=== PATIENT | male | born 1945 | race Caucasian/White ===

== ENCOUNTER 2017-12-14 11:26 | Emergency (ER) | payer OTHER ==
[~2017-12-14] VITALS: Ht 167.6 cm; Wt 100.0 kg
[2017-12-14 11:28] VITALS: BP 170/87; PULSE 91; RESP 16; TEMP 97.8; O2SAT 98
--- NOTE | 2017-12-14 12:29 | PD ---
HPI Chief Complaint: Dizziness Time Seen by Provider: 12:23 Travel History International Travel<30 days: No Contact w/Intl Traveler<30days: No Traveled to known affect area: No History of Present Illness HPI 72-year-old male patient with history of prostate cancer status post resection, metastases to the bone which is being followed currently with Dr. Joy, presents to the ER today for several weeks history of dizziness that is occurring intermittently. He does not know of any exacerbating or relieving factors. He denies any numbness, weakness, fevers, vomiting, chest pains, shortness of breath, or other symptoms. He says that he was sent in by his primary care physician to be evaluated with a CAT scan. Modifying Factors: None Associated Signs & Symptoms: Intermittent dizziness Risk Factors: History of prostate cancer with metastases to the bone [facility] Social History Tobacco Use: No Allergies-Medications (Allergen,Severity, Reaction): Coded Allergies: metformin (Verified Adverse Reaction, Intermediate, DIARRHEA, 12/14/17) Review of Systems Except as stated in HPI: all other systems reviewed are Neg Physical Exam Narrative GENERAL: Well-developed elderly white male patient currently not in acute distress. Awake and oriented 3. SKIN: Focused skin assessment warm/dry. HEAD: Atraumatic. Normocephalic. EYES: Pupils equal and round. No scleral icterus. No injection or drainage. ENT: No nasal bleeding or discharge. Mucous membranes pink and moist. NECK: Trachea midline. No JVD. CARDIOVASCULAR: Regular rate and rhythm. No murmur appreciated. RESPIRATORY: No accessory muscle use. Clear to auscultation. Breath sounds equal bilaterally. GASTROINTESTINAL: Abdomen soft, non-tender, nondistended. Hepatic and splenic margins not palpable. MUSCULOSKELETAL: No obvious deformities. No clubbing. No cyanosis. No edema. NEUROLOGICAL: Awake and alert. No obvious cranial nerve deficits. Motor grossly within normal limits. Normal speech. PSYCHIATRIC: Appropriate mood and affect; insight and judgment normal. Data Data Last Documented VS Vital Signs Date Time Temp Pulse Resp B/P (MAP) Pulse Ox O2 Delivery O2 Flow Rate FiO2 12/14/17 12:40 18 99 Room Air 12/14/17 12:39 12/14/17 11:28 97.8 91 Orders Orders Electrocardiogram (12/14/17 12:23) Complete Blood Count With Diff (12/14/17 12:23) Comprehensive Metabolic Panel (12/14/17 12:23) Magnesium (Mg) (12/14/17 12:23) Ckmb (Isoenzyme) Profile (12/14/17 12:23) Troponin I (12/14/17 12:23) Act Partial Throm Time (Ptt) (12/14/17 12:23) Prothrombin Time / Inr (Pt) (12/14/17 12:23) Urinalysis - C+S If Indicated (12/14/17 12:23) Ct Brain W/O Iv Contrast(Rout) (12/14/17 12:23) Ecg Monitoring (12/14/17 12:23) Iv Access Insert/Monitor (12/14/17 12:) Oximetry (12/14/17 12:) Sodium Chloride 0.9% Flush (Ns Flush) (12/14/17 12:30) Orthostatic Vital Signs (12/14/17 12:23) CKMB (12/14/17 12:40) CKMB% (12/14/17 12:40) Ed Discharge Order (12/14/17 14:17) Labs Laboratory Tests Test 12/14/17 12:40 White Blood Count 6.5 TH/MM3 Red Blood Count 4.97 MIL/MM3 Hemoglobin 13.2 GM/DL Hematocrit 39.5 % Mean Corpuscular Volume 79.6 FL Mean Corpuscular Hemoglobin 26.6 PG Mean Corpuscular Hemoglobin Concent 33.4 % Red Cell Distribution Width 15.8 % Platelet Count 189 TH/MM3 Mean Platelet Volume 8.1 FL Neutrophils (%) (Auto) 73.5 % Lymphocytes (%) (Auto) 15.1 % Monocytes (%) (Auto) 7.2 % Eosinophils (%) (Auto) 3.6 % Basophils (%) (Auto) 0.6 % Neutrophils # (Auto) 4.8 TH/MM3 Lymphocytes # (Auto) 1.0 TH/MM3 Monocytes # (Auto) 0.5 TH/MM3 Eosinophils # (Auto) 0.2 TH/MM3 Basophils # (Auto) 0.0 TH/MM3 CBC Comment DIFF FINAL Differential Comment Prothrombin Time 11.2 SEC Prothromb Time International Ratio 1.1 RATIO Activated Partial Thromboplast Time 26.1 SEC Urine Color LIGHT-YELLOW Urine Turbidity CLEAR Urine pH 5.5 Urine Specific [place] 1.019 Urine Protein NEG mg/dL Urine Glucose (UA) 1000 mg/dL Urine Ketones NEG mg/dL Urine Occult Blood NEG Urine Nitrite NEG Urine Bilirubin NEG Urine Urobilinogen LESS THAN 2.0 MG/DL Urine Leukocyte Esterase NEG Urine RBC LESS THAN 1 /hpf Urine WBC LESS THAN 1 /hpf Microscopic Urinalysis Comment CULT NOT INDICATED Blood Urea Nitrogen 24 MG/DL Creatinine 1.12 MG/DL Random Glucose 154 MG/DL Total Protein 7.2 GM/DL Albumin 3.2 GM/DL Calcium Level 8.4 MG/DL Magnesium Level 1.7 MG/DL Alkaline Phosphatase 122 U/L Aspartate Amino Transf (AST/SGOT) 18 U/L Alanine Aminotransferase (ALT/SGPT) 24 U/L Total Bilirubin 0.3 MG/DL Sodium Level 140 MEQ/L Potassium Level 4.0 MEQ/L Chloride Level 107 MEQ/L Carbon Dioxide Level 25.8 MEQ/L Anion Gap 7 MEQ/L Estimat Glomerular Filtration Rate 65 ML/MIN Total Creatine Kinase 150 U/L Creatine Kinase MB 2.8 NG/ML Troponin I LESS THAN 0.02 NG/ML MDM Medical Decision Making Medical Screen Exam Complete: Yes Emergency Medical Condition: Yes Medical Record Reviewed: Yes Interpretation(s) EKG shows NSR, no ST elevation or depression, and no arrhythmias. No significant T-wave inversions. Leads V2 does have a nonspecific ST abnormality concerning for possibility of Brugada syndrome. I think that this will need to be evaluated further with cardiology. Laboratory Tests Test 12/14/17 12:40 Mean Corpuscular Volume 79.6 FL (80.0-100.0) Mean Corpuscular Hemoglobin 26.6 PG (27.0-34.0) Neutrophils (%) (Auto) 73.5 % (16.0-70.0) Urine Glucose (UA) 1000 mg/dL (NEG) Blood Urea Nitrogen 24 MG/DL (7-18) Random Glucose 154 MG/DL (74-106) Albumin 3.2 GM/DL (3.4-5.0) Calcium Level 8.4 MG/DL (8.5-10.1) Alkaline Phosphatase 122 U/L (45-117) Estimat Glomerular Filtration Rate 65 ML/MIN (>89) Troponin I LESS THAN 0.02 NG/ML Last [address] 12/14/17 1223 Signed Impressions: Service Date/Time: November 12:57 - CONCLUSION: No acute disease. No evidence of acute infarct, hemorrhage, mass or edema. Ta Becker MD Differential Diagnosis Intermittent dizziness: Dehydration versus metabolic issues versus dysrhythmias versus acute intracranial processes Narrative Course Patient's fairly asymptomatic currently. EKG did not show any signs of acute ST elevations or depressions. There is some nonspecific V2 findings on EKG of uncertain etiology. We do not have an old comparison films. However, the patient is completely asymptomatic. CT the brain is negative for any signs of acute intracranial processes. At this point, my plan would be to have him follow-up with cardiology and primary care physician for further evaluation. Return for worsening in symptoms as necessary. The plan has been discussed with him and he states understanding. Diagnosis Primary Impression: Dizziness Disposition: 01 DISCHARGE HOME Condition: Stable Brielle Goel MD Dec 14, 2017 12:29
[2017-12-14] MEDS ORDERED: SODIUM CHLORIDE 0.9% FLUSH 10 ML FLUSH IVF PRN (12:30)
[2017-12-14 12:39] VITALS: O2SAT 99
[2017-12-14 13:30] LABS: AUTOMATED NEUTROPHIL # 4.8 TH/MM3 (1.8-7.7); BASOPHIL % 0.6 % (0.0-2.0); BILIRUBIN, URINE NEG (NEG); BLOOD, URINE NEG (NEG); EOSINOPHIL # 0.2 TH/MM3 (0-0.4); EOSINOPHIL % 3.6 % (0.0-4.0); GLUCOSE,URINE 1000 mg/dL (NEG); HEMATOCRIT 39.5 % (39.0-51.0); HEMOGLOBIN 13.2 GM/DL (13.0-17.0); KETONE, URINE NEG (NEG); LYMPH % 15.1 % (9.0-44.0); MEAN CELL VOLUME 79.6 FL (80.0-100.0); MEAN CORPUSCULAR HEMOGLOBIN 26.6 PG (27.0-34.0); MEAN CORPUSCULAR HGB CONC 33.4 % (32.0-36.0); MEAN PLATELET VOLUME 8.1 FL (7.0-11.0); MONO % 7.2 % (0.0-8.0); MONOCYTE # 0.5 TH/MM3 (0-0.9); NEUT % 73.5 % (16.0-70.0); NITRITE,URINE NEG (NEG); PH, URINE 5.5 (5.0-8.5); PLATELET COUNT 189 TH/MM3 (150-450); RED BLOOD COUNT 4.97 MIL/MM3 (4.50-5.90); RED CELL DISTRIBUTION WIDTH 15.8 % (11.6-17.2); URINE COLOR LIGHT-YELLOW (YELLW/STRAW); URINE LEUKOCYTE ESTERASE NEG (NEG); WHITE BLOOD COUNT 6.5 TH/MM3 (4.0-11.0)
[2017-12-14 13:37] LABS: INTERNATIONAL NORMALIZED RATIO 1.1 RATIO; PROTHROMBIN TIME - PATIENT 11.2 SEC (9.8-11.6)
[2017-12-14 13:44] LABS: ALBUMIN 3.2 GM/DL (3.4-5.0); ALT (GPT) 24 U/L (12-78); AST (GOT) 18 U/L (15-37); BICARBONATE 25.8 MEQ/L (21.0-32.0); BLOOD UREA NITROGEN 24 MG/DL (7-18); CALCIUM 8.4 MG/DL (8.5-10.1); CHLORIDE 107 MEQ/L (98-107); CREATININE 1.12 MG/DL (0.60-1.30); GLOMERULAR FILTRATION RATE 65 ML/MIN (>89); GLUCOSE,RANDOM 154 MG/DL (74-106); MAGNESIUM 1.7 MG/DL (1.5-2.5); SODIUM (NA) 140 MEQ/L (136-145)
[2017-12-14 13:48] LABS: ALKALINE PHOSPHATASE 122 U/L (45-117); TOTAL BILIRUBIN ADULT 0.3 MG/DL (0.2-1.0); TOTAL PROTEIN 7.2 GM/DL (6.4-8.2); TROPONIN I LESS THAN 0.02 NG/ML (0.02-0.05)
--- NOTE | 2017-12-14 13:49 | RADRPT ---
EXAM DATE/TIME: 12/14/2017 12:57 [facility] COMPARISON: No previous studies available for comparison. INDICATIONS : Dizziness, blurred vision RADIATION DOSE: 35.64 CTDIvol (mGy) MEDICAL HISTORY : Diabetes SURGICAL HISTORY : None. ENCOUNTER: Initial ACUITY: 1 month PAIN SCALE: 0/10 LOCATION: Bilateral cranial TECHNIQUE: Multiple contiguous axial images were obtained of the head. Using automated exposure control and adj ustment of the mA and/or kV according to patient size, radiation dose was kept as low as reasonably a chievable to obtain optimal diagnostic quality images. DICOM format image data is available electro nically for review and comparison. FINDINGS: CEREBRUM: The ventricles are normal for age. No evidence of midline shift, mass lesion, hemorrhage or acute in farction. No extra-axial fluid collections are seen. POSTERIOR FOSSA: The cerebellum and brainstem are intact. The 4th ventricle is midline. The cerebellopontine angle i s unremarkable. EXTRACRANIAL: The visualized portion of the orbits is intact. SKULL: The calvaria is intact. No evidence of skull fracture. CONCLUSION: No acute disease. No evidence of acute infarct, hemorrhage, mass or edema. Ta Becker MD on December 14, 2017 at 13:47 Board Certified Radiologist. This report was verified electronically.
--- NOTE | 2017-12-16 01:48 | EKG ---
Date Performed: 12/14/2017 Time Performed: 12:43:15 PTAGE: 72 years EKG: Sinus rhythm BORDERLINE LEFT AXIS DEVIATION MODERATE ST DEPRESSION TYPE 3 BRUGADA PATTERN (NON-DIAGNOSTIC) ABNORM AL ECG NO PREVIOUS TRACING DOCTOR: David Bloom Interpretating Date/Time 12/16/2017 01:47:54
== END 2017-12-14 14:32 | disposition home or self-care (01) ==
LOC: NEPC 11:26
DX: R42 Dizziness and giddiness (principal); R94.31 Abnormal electrocardiogram [ECG] [EKG]; C79.51 Secondary malignant neoplasm of bone; Z85.46 Personal history of malignant neoplasm of prostate
CPT/HCPCS: 70450; 80053; 81001; 82550; 82552; 83735; 84484; 85025; 85610; 85730; 93005